=== PATIENT | male | born 1960 | race Caucasian/White ===

== ENCOUNTER 2022-09-27 12:40 | Inpatient (IN) | payer MEDICAID ==
[~2022-09-27] VITALS: Ht 165.1 cm; Wt 84.1 kg
[2022-09-27] VITALS (10 sets, daily range): BP systolic 121–154; BP diastolic 72–97; PULSE 87–120; RESP 14–22; TEMP 97.9–98.6; O2SAT 95–96
[2022-09-27] MEDS ORDERED: diltiazem 5mg/ml 5ml inj. IV ONE ×2 (12:55→13:15)
[2022-09-27 13:06] LABS: MEAN PLATELET VOLUME 8.5 FL (7.4-10.4)
[2022-09-27 13:07] LABS: BASOPHILS # (AUTO) 0.1 X10'3 (0-0.2); BASOPHILS % (AUTO) 0.9 % (0-1); EOSINOPHILS # (AUTO) 0.2 X10'3 (0-0.9); EOSINOPHILS % (AUTO) 1.9 % (0-6); HEMOGLOBIN 17.7 g/dl (14.0-17.9); LYMPHOCYTES # (AUTO) 2.7 X10'3 (1.1-4.8); LYMPHOCYTES % (AUTO) 30.1 % (21-51); MEAN CORPUSCULAR HEMOGLOBIN 33.9 PG (27.0-31.0); MEAN CORPUSCULAR VOLUME 99.8 FL (78-98); NEUTROPHILS % (AUTO) 56.1 % (42-75); PLATELET COUNT 278 X10'3 (140-440); RED BLOOD COUNT 5.21 X10'6 (4.70-6.10); RED CELL DISTRIBUTION WIDTH 13.9 % (11.5-14.5); WHITE BLOOD COUNT 8.9 X10'3 (4.5-11.0)
[2022-09-27] MEDS ORDERED: LORazepam 2 mg/ml vial IV ONE (13:15)
[2022-09-27] MEDS ORDERED: amiodarone 200mg tablet PO ONE (13:20)
[2022-09-27 13:23] LABS: ALANINE AMINOTRANSFERASE 43 U/L (12-78); ALBUMIN 3.9 G/DL (3.4-5.0); ALBUMIN/GLOBULIN RATIO 0.9 (1.1-1.5); ALKALINE PHOSPHATASE 92 IU/L (46-116); ANION GAP 14 (8-16); ASPARTATE AMINO TRANSFERASE 41 U/L (10-37); BILIRUBIN,TOTAL 0.5 MG/DL (0.1-1.0); BLOOD UREA NITROGEN 17 MG/DL (7-18); BUN/CREATININE RATIO 13.3 (10.0-20.0); CALCIUM 9.2 MG/DL (8.5-10.1); CHLORIDE 102 MMOL/L (99-107); CREATININE 1.28 MG/DL (0.60-1.10); GLUCOSE 302 MG/DL (70-104); POTASSIUM 3.1 MMOL/L (3.5-5.1); PRO BRAIN NATRIURETIC PEPTIDE 427 PG/ML (0-125); SODIUM 141 MMOL/L (135-145); TOTAL PROTEIN 8.4 G/DL (6.4-8.2); eCRCL 53 ML/MIN; eGFR 57 ML/MIN
[2022-09-27] MEDS: diltiazem-NS 100mg/100ml 100 ML IV SCH ×3 (13:29→22:33)
[2022-09-27 13:55] LABS: ETHANOL 75 MG/DL (<10); FREE T4 (FREE THYROXINE) 0.99 NG/DL (0.73-1.40); THYROID STIMULATING HORMONE 1.78 ulU/ml (0.34-4.50)
--- NOTE | 2022-09-27 13:57 | NUR ---
SPOKE WITH DR PEREZ, STATED TO TITRATE DILTIAZEM DRIP UP TO 20 MG/HR.
[2022-09-27 13:59] LABS: APTT 29 SECONDS (22-32); INR 1.1 INR; PROTHROMBIN TIME 11.3 SECONDS (9.0-12.0)
[2022-09-27 14:17] LABS: BILIRUBIN,URINE NEGATIVE (Neg); CLARITY,URINE CLEAR (Clear); COLOR,URINE YELLOW (Yellow); GLUCOSE, URINE >=1000 mg/dl (Neg); KETONES,URINE NEGATIVE (Neg); LEUKOCYTE ESTERASE ,URINE NEGATIVE (Neg); NITRITES, URINE NEGATIVE (Neg); OCCULT BLOOD,URINE NEGATIVE (Neg); PH,URINE 5.5 (4.8-8.0); PROTEIN,URINE NEGATIVE (Neg); UROBILINOGEN,URINE 0.2 E.U/dL (0.2-1.0)
[2022-09-27 14:21] LABS: UA COLLECTION TYPE CLN CATCH MIDSTREAM
[2022-09-27 14:25] LABS: BACTERIA,URINE NONE SEEN /HPF (Neg); RBC,URINE NONE SEEN /HPF (0-2); SQUAMOUS EPITHELIAL CELL,UR NONE SEEN /LPF (FEW); WBC,URINE NONE SEEN /HPF (0-4)
[2022-09-27 14:31] LABS: URINE AMPHETAMINE SCREEN NEGATIVE (Neg); URINE BARBITUATE SCREEN NEGATIVE (Neg); URINE BENZODIAZEPINES SCREEN NEGATIVE (Neg); URINE CANNABINOID SCREEN POSITIVE (Neg); URINE COCAINE SCREEN NEGATIVE (Neg); URINE METHADONE SCREEN NEGATIVE (Neg); URINE OPIATE SCREEN NEGATIVE (Neg); URINE PHENCYCLIDINE SCREEN NEGATIVE (Neg)
--- NOTE | 2022-09-27 14:43 | NUR ---
DR PEREZ NOTIFIED THAT PT IS MAXED OUT ON CARDIZEM DRIP WITH HR REMAINING IN 120S. HE WILL PLACE ORDERS FOR AMIODARONE DRIP
[2022-09-27] MEDS ORDERED: amiodarone/D5 360MG/200ML BAG 200 ML IV ONE (15:00)
--- NOTE | 2022-09-27 15:15 | NUR ---
PER DR PEREZ, RUN AMIODARONE DRIP STARTING AT 0.5 MG/HR AND CONTINUE DILT DRIP AT CURRENT RATE
[2022-09-27] MEDS ORDERED: ALPRAZolam 0.5mg tablet PO ONE (15:25)
[2022-09-27] MEDS ORDERED: ondansetron/PF 4mg/2ml inj IV PRN (15:40)
[2022-09-27] MEDS ORDERED: magnesium 2GM in 50ml NS 50 ML IV PRN (15:40)
[2022-09-27] MEDS ORDERED: mag hydrox/Alum hydrox/simeth 30ml oral suspension PO PRN (15:40)
[2022-09-27] MEDS ORDERED: potassium Cl 40MEQ/1/2NS 520ml 520 ML IV PRN (15:40)
[2022-09-27] MEDS ORDERED: PERFLUTREN PROTEIN-A MICROSPHR (Optison) 0.22 MG/ML 3ML VIAL IV ONE (15:40)
[2022-09-27] MEDS ORDERED: acetaminophen 325mg tablet PO PRN (15:40)
[2022-09-27] MEDS ORDERED: magnesium Cl slow-release 64mg tablet PO PRN (15:40)
[2022-09-27] MEDS ORDERED: magnesium hydroxide 30ml (MOM) UD suspension PO PRN (15:40)
[2022-09-27] MEDS ORDERED: magnesium 4gm in 100ml NS 100 ML IV PRN (15:40)
[2022-09-27] MEDS ORDERED: LORazepam 1 MG tablet PO PRN (15:50)
[2022-09-27] MEDS ORDERED: LORazepam 2 mg/ml vial IV PRN (15:50)
--- NOTE | 2022-09-27 16:07 | NUR ---
notified dr lópez that pt remains tachy and in afib. no new orders.
[2022-09-27] MEDS: potassium Cl 20 mEq SR tablet PO PRN ×2 (17:54→22:17)
--- NOTE | 2022-09-27 18:44 | NUR ---
Problems reprioritized. Patient report given, questions answered & plan of care reviewed with Odalis RN, patient stable at transfer of care.
[2022-09-27] MEDS: K and/or MAG REPLACEMENT MC SCH (20:00)
[2022-09-27] MEDS: docusate sod 100mg capsule PO SCH (20:00)
[2022-09-28] VITALS (16 sets, daily range): BP systolic 118–149; BP diastolic 71–101; PULSE 57–100; RESP 13–22; TEMP 97.3–98.1; O2SAT 95–98
--- NOTE | 2022-09-28 00:22 | NUR ---
Pt requested not to share any of his medical information with his son, or any one unless it is an emergency where the pt is unable to talk or make decision.
--- NOTE | 2022-09-28 06:30 | NUR ---
Patient in room PCU 3013. I have received report from Romina DICKINSON and had the opportunity to ask questions and assume patient care.
--- NOTE | 2022-09-28 06:39 | NUR ---
Problems reprioritized. Patient report given, questions answered & plan of care reviewed with Iraida
[2022-09-28 07:04] LABS: BASOPHILS # (AUTO) 0.1 X10'3 (0-0.2); BASOPHILS % (AUTO) 0.9 % (0-1); EOSINOPHILS # (AUTO) 0.2 X10'3 (0-0.9); EOSINOPHILS % (AUTO) 3.1 % (0-6); HEMOGLOBIN 15.6 g/dl (14.0-17.9); LYMPHOCYTES % (AUTO) 24.3 % (21-51); MEAN CORPUSCULAR HEMOGLOBIN 33.9 PG (27.0-31.0); MEAN CORPUSCULAR VOLUME 99.8 FL (78-98); MONOCYTES # (AUTO) 1.1 X10'3 (0-0.9); MONOCYTES % (AUTO) 13.7 % (2-12); NEUTROPHILS # (AUTO) 4.7 X10'3 (1.8-7.7); PLATELET COUNT 240 X10'3 (140-440); RED BLOOD COUNT 4.61 X10'6 (4.70-6.10); RED CELL DISTRIBUTION WIDTH 13.7 % (11.5-14.5)
[2022-09-28 07:08] LABS: ALANINE AMINOTRANSFERASE 35 U/L (12-78); ALBUMIN 3.2 G/DL (3.4-5.0); ALBUMIN/GLOBULIN RATIO 0.9 (1.1-1.5); ALKALINE PHOSPHATASE 74 IU/L (46-116); ANION GAP 11 (8-16); ASPARTATE AMINO TRANSFERASE 37 U/L (10-37); BILIRUBIN,TOTAL 0.6 MG/DL (0.1-1.0); BLOOD UREA NITROGEN 17 MG/DL (7-18); BUN/CREATININE RATIO 18.7 (10.0-20.0); CALCIUM 8.9 MG/DL (8.5-10.1); CHLORIDE 103 MMOL/L (99-107); CREATININE 0.91 MG/DL (0.60-1.10); GLUCOSE 128 MG/DL (70-104); SODIUM 142 MMOL/L (135-145); TOTAL CARBON DIOXIDE 28.3 MMOL/L (24-32); TOTAL PROTEIN 6.8 G/DL (6.4-8.2); eCRCL 74 ML/MIN; eGFR 85 ML/MIN
--- NOTE | 2022-09-28 07:19 | NUR ---
PAGER ID: [phone] MESSAGE: [id number], Ari Holland. Pts potassium is 3.0, will replace per protocol. Iraida [facility] [id number]
[2022-09-28] MEDS: docusate sod 100mg capsule PO SCH ×2 (08:00→20:00)
[2022-09-28] MEDS: potassium Cl 20 mEq SR tablet PO PRN ×3 (08:05→17:00)
[2022-09-28] MEDS: K and/or MAG REPLACEMENT MC SCH ×2 (08:11→20:00)
[2022-09-28] MEDS ORDERED: METO-411 PO (08:48)
[2022-09-28] MEDS ORDERED: OMEP20CA16 PO (08:48)
[2022-09-28] MEDS ORDERED: TRAZ-251 PO (08:49)
[2022-09-28] MEDS ORDERED: EMPA10TA PO (08:49)
[2022-09-28] MEDS ORDERED: AMIO200T27 PO (08:50)
[2022-09-28] MEDS ORDERED: FOLI0.4T14 PO (08:51)
[2022-09-28] MEDS ORDERED: ATOR40TA71 PO (08:51)
[2022-09-28] MEDS ORDERED: DILT-35 PO (08:52)
[2022-09-28] MEDS ORDERED: APIX5TAB3 PO (08:52)
[2022-09-28] MEDS ORDERED: GABA300C PO (08:53)
[2022-09-28] MEDS ORDERED: ASPI-1397 PO (08:54)
[2022-09-28] MEDS ORDERED: POTA-206 PO (08:54)
[2022-09-28] MEDS ORDERED: FURO40TA4 PO (08:55)
[2022-09-28] MEDS ORDERED: THIA50TA10 PO (08:55)
[2022-09-28] MEDS ORDERED: diltiazem-NS 100mg/100ml 100 ML IV SCH (09:35)
--- NOTE | 2022-09-28 10:36 | NUR ---
PAGER ID: [phone] MESSAGE: [id number]. Ari Holland. Pts med rec needs to be addressed. Iraida Joe [id number].
--- NOTE | 2022-09-28 11:56 | NUR ---
PAGER ID: [phone] MESSAGE: [id number], Ari Holland. Pts med rec needs to be addressed. Iraida [facility] [id number]
[2022-09-28] MEDS ORDERED: diltiazem 30mg tablet PO SCH (12:20)
--- NOTE | 2022-09-28 18:35 | NUR ---
Problems reprioritized. Patient report given, questions answered & plan of care reviewed with Umer DICKINSON, patient stable at transfer of care.
[2022-09-28] MEDS: apixaban 5mg tablet PO SCH (20:24)
[2022-09-28] MEDS: metoprolol succinate 25mg (24-HOUR) SR. Tablet PO SCH (20:26)
[2022-09-28] MEDS: gabapentin 300mg capsule PO SCH (20:26)
[2022-09-28] MEDS: thiamine 100mg tablet PO SCH (20:28)
[2022-09-28] MEDS ORDERED: potassium chloride 10mEq ER tablet PO SCH (21:00)
[2022-09-28] MEDS ORDERED: atorvastatin 20mg tablet PO SCH (21:00)
[2022-09-28] MEDS ORDERED: aspirin 81mg, enteric-coated 1 TAB TABLET.DR PO SCH (21:00)
[2022-09-28] MEDS ORDERED: diltiazem CD 120mg capsule (once-daily) PO SCH (21:00)
[2022-09-28] MEDS ORDERED: furosemide 40mg tablet PO SCH (21:00)
[2022-09-28] MEDS ORDERED: folic acid 1mg tablet PO SCH (21:00)
[2022-09-28] MEDS ORDERED: traZODone 50mg tablet PO SCH (21:00)
[2022-09-28] MEDS ORDERED: amiodarone 200mg tablet PO SCH (21:00)
[2022-09-29 02:00] VITALS: BP 122/83; PULSE 63; RESP 18; TEMP 97.1; O2SAT 97
[2022-09-29] MEDS ORDERED: pantoprazole 40mg Tablet.DR PO SCH (07:30)
[2022-09-29 08:00] VITALS: RESP 13; O2SAT 96
[2022-09-29] MEDS: K and/or MAG REPLACEMENT MC SCH (08:00)
[2022-09-29] MEDS ORDERED: EMPAGLIFLOZIN 10 MG TABLET PO SCH (08:00)
[2022-09-29 08:01] LABS: BASOPHILS % (AUTO) 0.6 % (0-1); EOSINOPHILS # (AUTO) 0.2 X10'3 (0-0.9); EOSINOPHILS % (AUTO) 3.1 % (0-6); HEMATOCRIT 46.3 % (42.0-52.0); HEMOGLOBIN 15.6 g/dl (14.0-17.9); LYMPHOCYTES # (AUTO) 2.1 X10'3 (1.1-4.8); LYMPHOCYTES % (AUTO) 28.1 % (21-51); MEAN CORPUSCULAR HEMOGLOBIN 33.8 PG (27.0-31.0); MEAN CORPUSCULAR HGB CONC 33.7 g/dL (33.0-36.5); MEAN CORPUSCULAR VOLUME 100.3 FL (78-98); MEAN PLATELET VOLUME 8.7 FL (7.4-10.4); MONOCYTES # (AUTO) 0.8 X10'3 (0-0.9); MONOCYTES % (AUTO) 10.8 % (2-12); NEUTROPHILS # (AUTO) 4.2 X10'3 (1.8-7.7); NEUTROPHILS % (AUTO) 57.4 % (42-75); PLATELET COUNT 220 X10'3 (140-440); RED BLOOD COUNT 4.61 X10'6 (4.70-6.10); RED CELL DISTRIBUTION WIDTH 13.7 % (11.5-14.5); WHITE BLOOD COUNT 7.3 X10'3 (4.5-11.0)
[2022-09-29] MEDS: metoprolol succinate 25mg (24-HOUR) SR. Tablet PO SCH (08:07)
[2022-09-29] MEDS: docusate sod 100mg capsule PO SCH (08:07)
[2022-09-29] MEDS: apixaban 5mg tablet PO SCH (08:07)
[2022-09-29] MEDS: gabapentin 300mg capsule PO SCH (08:07)
[2022-09-29] MEDS: thiamine 100mg tablet PO SCH (08:09)
[2022-09-29 08:44] LABS: ALANINE AMINOTRANSFERASE 34 U/L (12-78); ALBUMIN 3.5 G/DL (3.4-5.0); ALBUMIN/GLOBULIN RATIO 0.9 (1.1-1.5); ALKALINE PHOSPHATASE 77 IU/L (46-116); ANION GAP 9 (8-16); ASPARTATE AMINO TRANSFERASE 31 U/L (10-37); BILIRUBIN,TOTAL 0.7 MG/DL (0.1-1.0); BLOOD UREA NITROGEN 14 MG/DL (7-18); BUN/CREATININE RATIO 15.7 (10.0-20.0); CALCIUM 9.2 MG/DL (8.5-10.1); CHLORIDE 104 MMOL/L (99-107); CREATININE 0.89 MG/DL (0.60-1.10); GLUCOSE 115 MG/DL (70-104); POTASSIUM 3.9 MMOL/L (3.5-5.1); SODIUM 141 MMOL/L (135-145); TOTAL CARBON DIOXIDE 27.7 MMOL/L (24-32); TOTAL PROTEIN 7.2 G/DL (6.4-8.2); eCRCL 76 ML/MIN; eGFR 87 ML/MIN
[2022-09-29 11:00] VITALS: BP 142/88; PULSE 63; RESP 13; TEMP 97.9; O2SAT 96
--- NOTE | 2022-09-29 12:22 | NUR ---
Called to schedule appointment for Cardiology appointment. Some unexpected issues prevented scheduling today. Pt. is aware and will schedule his follow up Cardiology appointment. He has been working to resolve ongoing scheduling issues with Conrado Hyde.
[2022-09-29] MEDS ORDERED: ondansetron 4mg rapidly disintigrating tab PO PRN (13:43)
[2022-10-02] MEDS ORDERED: thiamine 100mg tablet PO SCH (08:00)
== END 2022-09-29 13:55 | disposition home or self-care (01) | DRG 201 ==
LOC: ER 12:41 → ED HOLD 15:43 → PCU 3S 18:00
PROVIDERS: ADMIT Internal Medicine; ATTEND Internal Medicine
DX: I48.91 Unspecified atrial fibrillation (principal); N17.0 Acute kidney failure with tubular necrosis; I50.9 Heart failure, unspecified; I11.0 Hypertensive heart disease with heart failure; E11.69 Type 2 diabetes mellitus with other specified complication; I48.92 Unspecified atrial flutter; E87.6 Hypokalemia; F10.10 Alcohol abuse, uncomplicated; E78.5 Hyperlipidemia, unspecified; F41.9 Anxiety disorder, unspecified; K21.9 Gastro-esophageal reflux disease without esophagitis; Z72.0 Tobacco use; Z79.01 Long term (current) use of anticoagulants; Z79.84 Long term (current) use of oral hypoglycemic drugs; Z79.899 Other long term (current) drug therapy; Z83.3 Family history of diabetes mellitus; Z79.82 Long term (current) use of aspirin; Z71.51 Drug abuse counseling and surveillance of drug abuser; Z71.6 Tobacco abuse counseling
CPT/HCPCS: 36415; 71045; 80053; 80305; 80320; 81001; 83036; 83735; 83880; 84439; 84443; 84484; 85025; 85610; 85730; 87081; 93005; 93306; 99285; G0378; J0282; J2060; J3490